=== PATIENT | male | born 1955 | race Two or more races ===

== ENCOUNTER 2025-06-30 18:00 | Emergency (ER) | payer MEDICARE, OTHER | END 2025-06-30 19:21 | disposition home or self-care (01) | LOC: ERS 18:00 | DX: Z48.00 Encounter for change or removal of nonsurgical wound dressing (principal) | CPT/HCPCS: 99282 ==

== ENCOUNTER 2025-07-14 16:45 | Emergency (ER) | payer OTHER | END 2025-07-14 18:00 | disposition home or self-care (01) | LOC: ERS 16:45 | DX: Z45.2 Encounter for adjustment and management of vascular access device (principal); Z75.8 Other problems related to medical facilities and other health care; I10 Essential (primary) hypertension; I25.2 Old myocardial infarction; Z95.5 Presence of coronary angioplasty implant and graft | CPT/HCPCS: 71045 ==

== ENCOUNTER 2025-09-23 15:27 | Emergency (ER) | payer OTHER ==
[2025-09-23] MEDS ORDERED: Lidocaine 1% w/Epinephrine 1:100K 20 ML VIAL ONE (19:04)
[2025-09-23] MEDS ORDERED: Bacitracin 1 PK ONE ×2 (19:34→20:41)
== END 2025-09-23 21:39 | disposition home or self-care (01) ==
LOC: ERS 15:27
DX: Z45.2 Encounter for adjustment and management of vascular access device (principal); I10 Essential (primary) hypertension; E78.5 Hyperlipidemia, unspecified; I25.2 Old myocardial infarction; Z79.899 Other long term (current) drug therapy; Z95.9 Presence of cardiac and vascular implant and graft, unspecified
CPT/HCPCS: 71045